=== PATIENT | female | born 1970 | race Caucasian/White ===

== ENCOUNTER 2019-11-07 11:46 | Observation (INO) ==
[2019-11-07] MEDS ORDERED: ONDANSETRON 4 MG/2 ML VIAL IV PRN (13:28)
[2019-11-07] MEDS ORDERED: GLUCAGON 1 MG VIAL IM PRN (13:28)
[2019-11-07] MEDS ORDERED: ACETAMINOPHEN 325 MG TABLET PO PRN (13:28)
[2019-11-07] MEDS ORDERED: DEXTROSE 50% 25 GM/50 ML VIAL IV PRN (13:28)
[2019-11-07 13:54] LABS: Basophils % 0.2 % (0.0-0.8); Eosinophils # 0.1 10*3/uL (0.0-0.87); Eosinophils % 0.7 % (0.00-10.9); Hematocrit 35.9 VOL% (35.7-47.0); Hemoglobin 11.2 GM/DL (12.0-16.0); Immature Granulocytes % 0.4 %; Immature Granulocytes Absolute 0.04 #; Lymphocytes % 10.2 % (21.3-54.2); Mean Corpuscular HGB Conc 31.2 GM/DL (32-36); Mean Corpuscular Volume 92.1 FL (87-102); Mean Platelet Volume 9.8 FL (9.6-12.0); Monocytes % 8.2 % (1.7-12.7); Neutrophils % 80.3 % (38.7-73.9); Platelet Count 272 T/CUMM (130-400); White Blood Count 9.5 T/CUMM (4-12)
[2019-11-07 14:07] LABS: INR 1.1; PT Patient Result 11.8 SECS (9.8-11.9); Partial Thromboplastin Time 35.1 SECS (23.9-33.8)
[2019-11-07 14:09] LABS: Calcium 9.3 MG/DL (8.5-10.1)
[2019-11-07] MEDS ORDERED: APIXABAN 5 MG TABLET PO SCH (15:30)
[2019-11-07] MEDS: APIXABAN 5 MG TABLET PO SCH (16:46)
[2019-11-07 17:13] LABS: Apearance,Urine Slightly Hazy (Clear); Bilirubin,Urine Negative (Negative); Blood, Urine Large mg/dL (Negative); Glucose,Urine (UA) Negative (Negative); Ketones,Urine 80 mg/dL (Negative); Mucus,Urine Many /LPF (Occasional); Nitrite,Urine Negative (Negative); Protein,Urine 100 MG/DL; RBC,Urine 695 /HPF (0-4); Squamous Epithelial Cell,Urine Occasional /HPF (0-10); Urine Color Amber (Yellow); Urine Specific Gravity 1.033 (1.001-1.035); WBC,Urine 42 /HPF (0-6)
[2019-11-08 06:22] LABS: Basophils % 0.3 % (0.0-0.8); Eosinophils # 0.3 10*3/uL (0.0-0.87); Eosinophils % 3.8 % (0.00-10.9); Hematocrit 30.9 VOL% (35.7-47.0); Immature Granulocytes % 0.4 %; Immature Granulocytes Absolute 0.03 #; Lymphocytes # 1.1 10*3/uL (1.4-4.0); Lymphocytes % 13.8 % (21.3-54.2); Mean Corpuscular HGB Conc 32.4 GM/DL (32-36); Mean Corpuscular Volume 88.3 FL (87-102); Mean Platelet Volume 9.8 FL (9.6-12.0); Monocytes % 9.3 % (1.7-12.7); Neutrophils % 72.4 % (38.7-73.9); Platelet Count 257 T/CUMM (130-400); Red Cell Distribution Width 12.1 % (9.3-17.3)
[2019-11-08 06:36] LABS: Calcium 8.4 MG/DL (8.5-10.1)
[2019-11-08] MEDS ORDERED: POTASSIUM CHLORIDE 20 MEQ TABLET PO ONE (07:42)
[2019-11-08] MEDS: APIXABAN 5 MG TABLET PO SCH (08:25)
[2019-11-08] MEDS ORDERED: PANTOPRAZOLE 40 MG TABLET PO SCH (09:00)
[2019-11-08 11:51] VITALS: BP 110/68
[2019-11-09 18:41] LABS: Protein S Activity Plasma 96 % (50 - 160)
== END 2019-11-08 12:53 | disposition home or self-care (01) ==
LOC: SUATTDRO 12:16 → INTOOBSV 12:16 → N.3E 12:16 → OBSVTOIN 12:16 → N.3E 12:49
PROVIDERS: ADMIT Internal Medicine; ATTEND Internal Medicine